=== PATIENT | male | born 1965 | race Two or more races ===

== ENCOUNTER 2017-02-03 16:22 | Emergency (ER) | payer SELFPAY ==
[~2017-02-03] VITALS: Ht 172.7 cm; Wt 78.8 kg
[~2017-02-03 16:22] MED LIST: GABA300C16 PO; INSU100V27 SC; LANT3I SC; LISI20TA11 PO; SIMV-39 PO
[2017-02-03 16:44] VITALS: Ht 172.7 cm; Wt 78.8 kg
[2017-02-03] MEDS ORDERED: NITROGLYCERIN 2% 1 GM OINT PKT TD STA (21:13)
[2017-02-03] MEDS ORDERED: ASPIRIN 81 MG TAB PO STA (21:13)
[2017-02-03] MEDS ORDERED: NITROGLYCERIN (SL) 0.4 MG TAB SL PRN (21:30)
== END 2017-02-03 22:09 | disposition left against medical advice (07) ==
LOC: E/R 16:22
DX: Z53.21 Procedure and treatment not carried out due to patient leaving prior to being seen by health care provider (principal)
CPT/HCPCS: 93005

== ENCOUNTER 2017-05-29 10:08 | Day surgery (SDC) | END 2017-05-29 17:06 | disposition home or self-care (01) ==